=== PATIENT | female | born 2000 | race Hispanic/Latino ===

== ENCOUNTER → 2020-08-17 | Outpatient (CLI) | payer OTHER ==
[~2020-08-17] MED LIST: COVID-19 VACC, MRNA(MODERNA)/PF 100 MCG/0.5 ML VIAL IM ONE; ULTRAM50 MG PO
== END | disposition home or self-care (01) ==
LOC: VACCPMC 11:30
DX: Z23 Encounter for immunization (principal); Z20.822 Contact with and (suspected) exposure to COVID-19
CPT/HCPCS: 91301

== ENCOUNTER 2022-03-30 17:47 | Emergency (ER) | payer OTHER ==
[~2022-03-30] VITALS: Ht 157.5 cm; Wt 68.0 kg
[~2022-03-30 17:47] MED LIST changes: -COVID-19 VACC, MRNA(MODERNA)/PF 100 MCG/0.5 ML VIAL IM ONE
[2022-03-30] MEDS ORDERED: METHOCARBAMOL750 MG PO (18:54)
[2022-03-30] MEDS ORDERED: IBUPROFEN600 MG PO (18:54)
== END 2022-03-30 19:07 | disposition home or self-care (01) ==
LOC: ER 17:53
DX: M25.512 Pain in left shoulder (principal); X50.0XXA Overexertion from strenuous movement or load, initial encounter
CPT/HCPCS: 99282